=== PATIENT | female | born 2000 | race Two or more races ===

== ENCOUNTER 2023-09-09 17:32 | Inpatient (IN) | payer MEDICAID ==
[~2023-09-09] VITALS: Ht 162.6 cm; Wt 79.0 kg
[2023-09-09 19:11] LABS: Urine Bacteria NONE SEEN /hpf (None Seen); Urine Blood Negative /uL (Negative); Urine Clarity Clear (Clear); Urine Color Colorless (Yellow); Urine Mucus FEW (None Seen); Urine Protein, UAD 1+ (Negative); Urine Specific Gravity 1.038 (1.001-1.035); Urine Urobilinogen Normal (Negative); Urine WBC 1 /hpf (0 - 5); Urine pH 5.5 (5.0-8.0)
[2023-09-09 19:11] LABS: Basophils # (auto) 0.1 10 ^3/uL (0-0.2); Basophils % (auto) 0.6 % (0.0-2.0); Eosinophils # (auto) 0.1 10 ^3/uL (0-0.8); Eosinophils % (auto) 0.5 % (0.0-7.0); Hemoglobin 15.4 g/dL (12.2-16.2); Lymphocytes # (auto) 4.1 10 ^3/uL (0.4-5.4); Lymphocytes % (auto) 23.1 % (10.0-50.0); Mean Corpuscular Hemoglobin 27.6 pg (28.0-32.0); Mean Corpuscular Hgb Conc. 32.8 g/dL (32.0-36.0); Mean Corpuscular Volume 84.2 fL (80.0-100.0); Monocytes # (auto) 0.7 10 ^3/uL (0-1.3); Neutrophils # (auto) 12.7 10 ^3/uL (1.6-8.6); Neutrophils % (auto) 71.8 % (37.0-80.0); Red Blood Cells 5.58 10^6/uL (4.0-5.20); Red Cell Distribution Width 13.6 % (11.8-14.3); White Blood Cell 17.7 10^3/uL (4.4-10.8)
[2023-09-09 19:18] LABS: Chloride 101 mmol/L (98-107); Potassium 4.2 mmol/L (3.5-5.1); Sodium 132 mmol/L (136-145)
[2023-09-09 19:19] LABS: Anion Gap 16 (5-15); Calcium 9.7 mg/dL (8.7-10.4); Carbon Dioxide 15 mmol/L (20-30)
[2023-09-09 19:24] LABS: Glucose 333 mg/dL (74-106)
[2023-09-09 19:27] LABS: BUN/Creatinine Ratio 5.9 (10.0-20.0); Blood Urea Nitrogen < 5 mg/dL (9-23)
[2023-09-09] MEDS ORDERED: MORPHINE SULFATE INJ 2 MG/ml SYRG IV PRN (20:45)
[2023-09-09] MEDS ORDERED: NITROGLYCERIN 0.4 MG SL TAB SL PRN (20:45)
[2023-09-09] MEDS ORDERED: DEXTROSE (50%) 50ML SYRG IV PRN (20:45)
[2023-09-09] MEDS ORDERED: ONDANSETRON HCL 4 MG/2 ML VIAL IV PRN (20:45)
[2023-09-09] MEDS: SODIUM CHLORIDE 0.9% 2,000 ML IV ONE (21:31)
[2023-09-09 21:54] LABS: Chloride 106 mmol/L (98-107); Potassium 3.8 mmol/L (3.5-5.1); Sodium 136 mmol/L (136-145)
[2023-09-09 21:55] LABS: Anion Gap 16 (5-15); Calcium 8.3 mg/dL (8.5-10.1); Carbon Dioxide 14 mmol/L (20-30)
[2023-09-09 22:00] LABS: BUN/Creatinine Ratio 7.4 (10.0-20.0); Blood Urea Nitrogen 5 mg/dL (9-23); Glucose 274 mg/dL (74-106)
[2023-09-09] MEDS: INSULIN LANTUS (GLARGINE) 1 /0.01ml (100units/ml) SC ONE (23:41)
[2023-09-09] MEDS: ACCU-CHEK COMFORT CURVE STRIP VI SCH (23:42)
[2023-09-10] MEDS: INSULIN DRIP 100 UNIT/100ML 100 ML IV SCH (01:10)
[2023-09-10 01:44] VITALS: PULSE 82; RESP 19; O2SAT 99
[2023-09-10 02:49] LABS: Chloride 109 mmol/L (98-107); Potassium 3.7 mmol/L (3.5-5.1); Sodium 135 mmol/L (136-145)
[2023-09-10 02:50] LABS: Anion Gap 12 (5-15); Carbon Dioxide 14 mmol/L (20-30)
[2023-09-10 02:55] LABS: Glucose 229 mg/dL (74-106)
[2023-09-10 03:10] LABS: BUN/Creatinine Ratio 8.5 (10.0-20.0); Blood Urea Nitrogen < 5 mg/dL (9-23)
[2023-09-10] MEDS: SODIUM CHLORIDE 0.9% 1,000 ML IV SCH (03:17)
[2023-09-10 05:32] LABS: Basophils # (auto) 0.1 10 ^3/uL (0-0.2); Basophils % (auto) 0.5 % (0.0-2.0); Eosinophils # (auto) 0.2 10 ^3/uL (0-0.8); Eosinophils % (auto) 1.3 % (0.0-7.0); Lymphocytes # (auto) 4.6 10 ^3/uL (0.4-5.4); Lymphocytes % (auto) 31.5 % (10.0-50.0); Mean Corpuscular Hemoglobin 27.8 pg (28.0-32.0); Mean Corpuscular Hgb Conc. 33.3 g/dL (32.0-36.0); Mean Corpuscular Volume 83.5 fL (80.0-100.0); Monocytes # (auto) 0.7 10 ^3/uL (0-1.3); Monocytes % (auto) 4.8 % (0.0-12.0); Neutrophils % (auto) 61.9 % (37.0-80.0); Red Blood Cells 4.66 10^6/uL (4.0-5.20); Red Cell Distribution Width 13.3 % (11.8-14.3); White Blood Cell 14.6 10^3/uL (4.4-10.8)
[2023-09-10 05:42] LABS: Calcium 8.2 mg/dL (8.5-10.1); Chloride 109 mmol/L (98-107); Potassium 3.1 mmol/L (3.5-5.1); Sodium 136 mmol/L (136-145)
[2023-09-10 05:43] LABS: Anion Gap 14 (5-15); Carbon Dioxide 13 mmol/L (20-30)
[2023-09-10 05:48] LABS: Glucose 178 mg/dL (74-106)
[2023-09-10 05:57] LABS: BUN/Creatinine Ratio 8.9 (10.0-20.0); Blood Urea Nitrogen < 5 mg/dL (9-23)
[2023-09-10] MEDS ORDERED: DEXTROSE (50%) 50ML SYRG IV PRN ×2 (06:45→12:15)
[2023-09-10 07:30] VITALS: PULSE 84; RESP 16; O2SAT 97
[2023-09-10] MEDS: ACCU-CHEK COMFORT CURVE STRIP VI SCH ×2 (08:11→17:12)
[2023-09-10] MEDS: InsuLIN REG 1unit/0.01ml Soln (100units/ml) SC SCH ×3 (09:34→23:17)
[2023-09-10] MEDS: INSULIN LANTUS (GLARGINE) 1 /0.01ml (100units/ml) SC SCH (09:34)
[2023-09-10] MEDS: POTASSIUM CHL 20 Meq TABLET PO ONE (12:39)
[2023-09-10] MEDS: LACTATED RINGER'S 1,000 ML IV SCH (12:39)
[2023-09-10 15:13] LABS: Chloride 108 mmol/L (98-107); Potassium 3.6 mmol/L (3.5-5.1); Sodium 137 mmol/L (136-145)
[2023-09-10 15:14] LABS: Anion Gap 12 (5-15); Calcium 8.7 mg/dL (8.5-10.1); Carbon Dioxide 17 mmol/L (20-30)
[2023-09-10 15:19] LABS: Glucose 248 mg/dL (74-106)
[2023-09-10 15:28] LABS: BUN/Creatinine Ratio 6.3 (10.0-20.0); Blood Urea Nitrogen < 5 mg/dL (9-23)
[2023-09-10 20:00] VITALS: RESP 18; O2SAT 98
[2023-09-10 22:00] VITALS: BP 126/75; PULSE 89; RESP 20; TEMP 97; O2SAT 98
[2023-09-11 04:58] LABS: Basophils # (auto) 0.1 10 ^3/uL (0-0.2); Basophils % (auto) 0.5 % (0.0-2.0); Eosinophils # (auto) 0.2 10 ^3/uL (0-0.8); Eosinophils % (auto) 1.6 % (0.0-7.0); Hematocrit 40.9 % (36.0-46.0); Hemoglobin 13.7 g/dL (12.2-16.2); Lymphocytes # (auto) 4.3 10 ^3/uL (0.4-5.4); Lymphocytes % (auto) 42.9 % (10.0-50.0); Mean Corpuscular Hemoglobin 27.8 pg (28.0-32.0); Mean Corpuscular Hgb Conc. 33.6 g/dL (32.0-36.0); Mean Corpuscular Volume 82.9 fL (80.0-100.0); Monocytes # (auto) 0.6 10 ^3/uL (0-1.3); Monocytes % (auto) 5.7 % (0.0-12.0); Neutrophils % (auto) 49.3 % (37.0-80.0); Nucleated Red Blood Cells % 0.1 %; Red Blood Cells 4.94 10^6/uL (4.0-5.20); Red Cell Distribution Width 13.8 % (11.8-14.3); White Blood Cell 10.1 10^3/uL (4.4-10.8)
[2023-09-11 05:00] VITALS: BP 119/81; PULSE 82; RESP 20; TEMP 98.6; O2SAT 98
[2023-09-11 05:06] LABS: Chloride 106 mmol/L (98-107); Sodium 137 mmol/L (136-145)
[2023-09-11 05:07] LABS: Anion Gap 11 (5-15); Carbon Dioxide 20 mmol/L (20-30)
[2023-09-11 05:08] LABS: Calcium 8.4 mg/dL (8.7-10.4)
[2023-09-11 05:12] LABS: Glucose 235 mg/dL (74-106)
[2023-09-11 05:13] LABS: Magnesium 1.7 mg/dL (1.6-2.6)
[2023-09-11 05:15] LABS: Phosphorus 2.1 mg/dL (2.4-5.1)
[2023-09-11 05:33] LABS: BUN/Creatinine Ratio 10.4 (10.0-20.0); Blood Urea Nitrogen < 5 mg/dL (9-23)
[2023-09-11 09:00] VITALS: BP 122/74; PULSE 72; RESP 18; TEMP 98.2; O2SAT 100
[2023-09-11] MEDS ORDERED: INSULIN LANTUS (GLARGINE) 1 /0.01ml (100units/ml) SC SCH (10:00)
[2023-09-11] MEDS: POTASSIUM CHL 20 Meq TABLET PO ONE (11:19)
[2023-09-11] MEDS: MAGNESIUM SULFATE 1GM/100ML 100 ML IV SCH (11:21)
[2023-09-11 14:04] VITALS: BP 126/81; PULSE 91; RESP 18; TEMP 97.9; O2SAT 98
[2023-09-11 17:00] VITALS: BP 127/75; PULSE 88; RESP 18; TEMP 98.1; O2SAT 96
[2023-09-11 22:00] VITALS: BP 131/73; PULSE 87; RESP 18; TEMP 98; O2SAT 98
[2023-09-11] MEDS: INSULIN LANTUS (GLARGINE) 1 /0.01ml (100units/ml) SC SCH (22:13)
[2023-09-12 05:00] VITALS: BP 114/66; PULSE 84; RESP 20; TEMP 97.7; O2SAT 99
[2023-09-12 06:29] LABS: Chloride 104 mmol/L (98-107); Potassium 2.9 mmol/L (3.5-5.1); Sodium 138 mmol/L (136-145)
[2023-09-12 06:30] LABS: Calcium 8.6 mg/dL (8.5-10.1)
[2023-09-12 06:35] LABS: Glucose 217 mg/dL (74-106)
[2023-09-12 06:44] LABS: Carbon Dioxide 22 mmol/L (20-30)
[2023-09-12 06:49] LABS: BUN/Creatinine Ratio 10.9 (10.0-20.0); Blood Urea Nitrogen < 5 mg/dL (9-23)
[2023-09-12 07:19] LABS: Anion Gap 12 (5-15)
[2023-09-12 09:00] VITALS: BP 139/85; PULSE 86; RESP 18; TEMP 98.3; O2SAT 98
[2023-09-12] MEDS: POTASSIUM CHL 20 Meq TABLET PO ONE (11:54)
[2023-09-12] MEDS: POTASSIUM CHLORIDE 40 MEQ, LIDOCAINE 1% (LOCAL ANESTH.) 4 ML in SODIUM CHL 0.9% 250 ML IV ONE (12:39)
[2023-09-12 12:51] VITALS: BP 122/72; PULSE 87; RESP 18; TEMP 98.3; O2SAT 96
[2023-09-12 17:19] VITALS: BP 126/82; PULSE 91; RESP 18; TEMP 98; O2SAT 97
[2023-09-12] MEDS: INSULIN LANTUS (GLARGINE) 1 /0.01ml (100units/ml) SC SCH (21:29)
[2023-09-12 22:00] VITALS: BP 123/75; PULSE 88; RESP 17; TEMP 98.4; O2SAT 95
[2023-09-13 05:06] VITALS: BP 97/57; PULSE 65; RESP 19; TEMP 98.9; O2SAT 96
[2023-09-13 06:41] LABS: Chloride 106 mmol/L (98-107); Sodium 137 mmol/L (136-145)
[2023-09-13 06:42] LABS: Anion Gap 7 (5-15); Calcium 8.4 mg/dL (8.7-10.4); Carbon Dioxide 24 mmol/L (20-30)
[2023-09-13 06:47] LABS: Glucose 176 mg/dL (74-106)
[2023-09-13 06:48] LABS: Magnesium 1.8 mg/dL (1.6-2.6)
[2023-09-13 06:50] LABS: BUN/Creatinine Ratio 11.9 (10.0-20.0); Blood Urea Nitrogen < 5 mg/dL (9-23)
[2023-09-13 08:59] LABS: Hepatitis B Surface Antigen Negative (Negative)
[2023-09-13 09:00] VITALS: BP 124/78; PULSE 81; RESP 19; TEMP 98.3; O2SAT 98
[2023-09-13 09:04] LABS: Hepatitis C Antibody Negative (Negative)
[2023-09-13] MEDS ORDERED: INSU100I49 SC (11:23)
[2023-09-13] MEDS ORDERED: INSLANTI SC (11:23)
[2023-09-13] MEDS: POTASSIUM CHL 20 Meq TABLET PO ONE (12:33)
[2023-09-13 12:59] VITALS: BP 111/65; PULSE 72; RESP 18; TEMP 97.9; O2SAT 98
[2023-09-13 17:04] VITALS: BP 97/57; PULSE 65; RESP 19; TEMP 98.9; O2SAT 96
[2023-09-13 17:07] VITALS: BP 118/73; PULSE 87; RESP 19; TEMP 97.7; O2SAT 94
== END 2023-09-13 18:10 | disposition home or self-care (01) | DRG 420 ==
LOC: ER 17:32 → TELE 20:44 → TELE-WESTW 09-10 17:31 → WEST WING 09-10 17:50
PROVIDERS: ADMIT Nurse Practitioner; ATTEND Internal Medicine
DX: E11.10 Type 2 diabetes mellitus with ketoacidosis without coma (principal); R65.10 Systemic inflammatory response syndrome (SIRS) of non-infectious origin without acute organ dysfunction; E87.6 Hypokalemia; Z83.3 Family history of diabetes mellitus; Z88.0 Allergy status to penicillin; Z79.4 Long term (current) use of insulin
CPT/HCPCS: 36415; 80048; 81001; 82010; 82962; 83036; 83605; 83735; 84100; 84443; 85025; 86803; 87340; 96361; 96365; 96372; G0378; J1815; J2001